=== PATIENT | female | born 2000 | race Caucasian/White ===

== ENCOUNTER 2023-11-01 12:52 | Emergency (ER) | payer OTHER ==
[~2023-11-01] VITALS: Ht 167.6 cm; Wt 98.0 kg
[2023-11-01 13:35] VITALS: BP_SYST 133; PULSE 103; RESP 16; TEMP 97.4; O2SAT 97
[2023-11-01 13:50] VITALS: BP_SYST 133; PULSE 103; RESP 16; TEMP 97.4; O2SAT 97
[2023-11-01] MEDS: ONDANSETRON HCL 4 MG/2 ML VIAL IVP ONE (16:45)
[2023-11-01] MEDS: NACL 0.9% 1,000 ML IV ONE (16:51)
[2023-11-01 16:53] LABS: BILIRUBIN,URINE NEGATIVE (NEGATIVE); BLOOD, URINE NEGATIVE (NEGATIVE); CLARITY/URINE CLOUDY (CLEAR); COLOR,URINE YELLOW (YELLOW); GLUCOSE,URINE NEGATIVE (NEGATIVE); KETONES,URINE 3+ (NEGATIVE); LEUKOCYTE ESTERASE ,URINE 2+ (NEGATIVE); NITRITE, URINE NEGATIVE (NEGATIVE); PH,URINE 7.5 (5.0-8.0); PROTEIN URINE NEGATIVE (NEGATIVE)
[2023-11-01 17:01] LABS: BACTERIA,URINE FEW /HPF (None Seen); MUCUS,URINE None Seen /LPF (None Seen); RBC,URINE NONE SEEN /HPF (0-3); URINE AMORPHOUS PHOSPHATES 3+ /HPF (None Seen)
[2023-11-01] MEDS ORDERED: ONDA8TAB60 PO (17:08)
[2023-11-01] MEDS ORDERED: CEPH-548 PO (17:08)
[2023-11-01] MEDS: ACETAMINOPHEN 500 MG TABLET PO ONE (17:09)
[2023-11-01] MEDS: MORPHINE 4 MG INJ. 4 MG/ML VIAL IVP ONE (17:19)
== END 2023-11-01 17:29 | disposition home or self-care (01) ==
LOC: SED 12:52
DX: O23.42 Unspecified infection of urinary tract in pregnancy, second trimester (principal); N39.0 Urinary tract infection, site not specified; O21.9 Vomiting of pregnancy, unspecified; Z3A.14 14 weeks gestation of pregnancy; Z88.0 Allergy status to penicillin; Z79.899 Other long term (current) drug therapy
CPT/HCPCS: 99284; 96374; 96361; 96375; 81001; 87086; 81000; 81015; J2405; J2270; J7030